=== PATIENT | male | born 1960 | race Caucasian/White ===

== ENCOUNTER 2025-08-09 10:24 | Emergency (ER) | payer OTHER, SELFPAY ==
--- NOTE | ~2025-08-09 | XR_ITS ---
Examination: XR finger 1st LT min 2V Clinical History: pain, hyper extension Comparison: None Technique: 3 views left thumb Findings/impression: 1. No fracture or dislocation identified left first finger. 2. Degenerative changes basal joint of thumb. Reviewed, dictated and finalized at location R. LOT ATTENDANT
[2025-08-09 10:37] VITALS: BP 160/77; PULSE 83; RESP 18; TEMP 36.3; O2SAT 98
--- NOTE | 2025-08-09 10:37 | ED_ITS ---
HPI - Extremity Injury (Upper) General Chief Complaint: Extremity Injury, Upper Stated Complaint: L Thumb Time Seen by Provider: 08/09/25 10:38 Source: patient, RN notes reviewed and old records reviewed Mode of arrival: ambulatory Limitations: no limitations History of Present Illness HPI narrative: 65 year male presents to the [facility] with complaints thumb pain that radiates up his arm. 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 and dentist finger backwards. No bruising or swelling noted. No tenderness with palpation. Full range of motion noted. Sensation intact and capillary refill under 2 seconds. States he has taken his gabapentin which as prescribed. No other treatment prior to Related Data Home Medications ?Medication ?Instructions ?Recorded ?Confirmed ?Last Taken ?Type atorvastatin 80 mg tablet mg 08/09/25 Unknown History empagliflozin 25 mg tablet mg 08/09/25 Unknown Histor y (Jardiance) folic acid 1 mg tablet 08/09/25 Unknown History gabapentin 100 mg capsule mg 08/09/25 Unknown History glimepiride 2 mg tablet mg 08/09/25 Unknown History levothyroxine 125 mcg tablet mcg 08/09/25 Unknown His tory meloxicam 15 mg tablet mg 08/09/25 Unknown History olmesartan 20 mg tablet mg 08/09/25 Unknown History ropinirole 2 mg tablet mg 08/09/25 Unknown History Allergies Allergy/AdvReac Type Severity Reaction Status Date / Time No Known Allergies Allergy Verified 08/09/25 10:26 Review of Systems Review of Systems: All systems reviewed & are unremarkable except as noted in HPI and below Constitutional: Constitutional: Reports no additional constitutional complaints Musculoskeletal: Musculoskeletal: Reports as per HPI Integumentary/Breasts: Skin/Breast: Reports system reviewed and no additional complaints, except as docu PMFSH Comments At the time of my signature, I reviewed and agree with the nursing past medical, surgical, social, and family history. There is no relevant family history pertinent to the patient complaint. Exam Const: General: cooperative, healthy appearing, comfortable, no acute distr ess, well developed, alert and well nourished Nutritional Appearance: well nourished Orientation/consciousness: patient oriented x3 Limitations: no limitations HENMT: Head: normal to inspection Eyes: General: appearance normal, both eyes and all related structures Alignment and Position: alignment normal Neck: Neck: normal visual inspection, full ROM, no lymphadenopathy and no meningeal signs Chest: Chest palpation & inspection: normal inspection of the chest Resp: Effort & Inspection: normal respiratory effort and able to speak in complete sentences Cardio: Rate: regular rate Skin: General skin exam: normal color and no rashes or lesions noted Neuro: General: patient oriented x3, gait normal, moves all extremities and no meningeal signs Cognition (Neuro): normal cognition Speech: normal speech Gait exam (Neuro): Normal gait present Extrem: General: normal to inspection, full ROM, capillary refill normal and normal gait Left upper extremity: hand normal capillary refill, vascular exam radial pulse present and normal capillary refill, abnormal ROM of finger pain with active ROM of the thumb (MCP ) and no swelling; no tenderness, no swelling, no abrasions, no lacerations, no ecchymosis and no crepitus Other: Reports palpation of the thumb, hand and wrist make the discomfort better. Psych: Appearance: grossly normal and well kempt Mental Status: mental status grossly normal Speech and movement: Normal speech and movement present and Clear speech present Affect: normal affect Attitude: cooperative Course Course Level of Care: Express Care Visit Vital Signs Vital signs: Vital Signs Temperature 97.3 F L 08/09/25 10:37 Pulse Rate 83 08/09/25 10:37 Respiratory Rate 18 08/09/25 10:37 Blood Pressure 160/77 H 08/09/25 10:37 Pulse Oximetry 98 08/09/25 10:37 Oxygen Delivery Room Air 08/09/25 10:37 Temperature 97.3 F L 08/09/25 10:37 Pulse Rate 83 08/09/25 10:37 Respiratory Rate 18 08/09/25 10:37 Blood Pressure 160/77 H 08/09/25 10:37 Pulse Oximetry 98 08/09/25 10:37 Oxygen Delivery Room Air 08/09/25 10:37 Reviewed MDM - Extremity Injury (Upper) MDM Narrative Medical decision making narrative: Patient sitting in exam. Patient is nontoxic, vitals stable except blood pressure elevated. Patient is treated for hypertension. Patient presents left thumb injury probable hyper extension. X-ray negative No acute findings noted on exam Patient is appropriate outpatient treatment of thumb strain at the [facility] Discharge instructions reviewed with patient, as well as provided in writing per nursing staff. The instructions also include specific and strict return/GO TO THE ER as well as f/u information. All questions have been answered, and the patient deny any further questions with discharge and discharge plan. Some parts of this dictation were generated by voice recognition software and may contain typographical and/or grammatical inaccuracies. Differential Diagnosis Differential diagnosis: Likely sprain and strain of wrist and finger sprain Imaging Data Radiologist's impression: Examination: XR finger 1st LT min 2V Clinical History: pain, hyper extension Comparison: None Technique: 3 views left thumb Findings/impression: 1. No fracture or dislocation identified left first finger. 2. Degenerative changes basal joint of thumb. Critical Care Time Critical Care Time Critical Care Time: No Discharge Plan Discharge Clinical Impression: Left thumb sprain Patient Disposition: Home Condition: Stable Instructions: Antibiotic Form, Finger Sprain (ED) Additional Instructions: Your Xray did not show a fracture. Ice should be applied to help reduce swelling. It can be used for 20 to 30 minutes, every 2-3 hours while awake. Do not apply ice directly to your skin. wearing an Soto wrap or a thumb brace can help with discomfort Tylenol 650mg every 6-8 hours as needed for pain, take per package instructions Please schedule a follow-up visit with your personal physician for further evaluation and treatment within 2 weeks especially if symptoms persist. For new or worsening symptoms go directly to the emergency room Patient Language: Welsh Prescriptions: No Action atorvastatin 80 mg tablet meloxicam 15 mg tablet glimepiride 2 mg tablet ropinirole 2 mg tablet levothyroxine 125 mcg tablet folic acid 1 mg tablet gabapentin 100 mg capsule olmesartan 20 mg tablet Jardiance 25 mg tablet Follow-up/Referrals: UNKNOWN,DOCTOR [Primary Care Provider] Stand Alone Forms: Work/School Release IP Time of Disposition: 11:18
== END 2025-08-09 11:24 | disposition home or self-care (01) ==
PROVIDERS: Emergency Provider Nurse Practitioner
DX: S63.602A Unspecified sprain of left thumb, initial encounter (principal); W22.8XXA Striking against or struck by other objects, initial encounter; I10 Essential (primary) hypertension; E78.00 Pure hypercholesterolemia, unspecified; N40.0 Benign prostatic hyperplasia without lower urinary tract symptoms; M19.90 Unspecified osteoarthritis, unspecified site; E11.9 Type 2 diabetes mellitus without complications; Z79.84 Long term (current) use of oral hypoglycemic drugs; E03.9 Hypothyroidism, unspecified; K21.9 Gastro-esophageal reflux disease without esophagitis; Z96.643 Presence of artificial hip joint, bilateral
CPT/HCPCS: 73140; 99203; G0463